=== PATIENT | female | born 2000 | race Two or more races ===

== ENCOUNTER 2024-06-30 20:04 | Emergency (ER) | payer SELFPAY ==
[~2024-06-30] VITALS: Ht 170.2 cm; Wt 59.0 kg
[~2024-06-30 20:04] MED LIST: CITRATE OF MEGNESIA PO; MIRALAX17 GM PO
[2024-06-30] MEDS ORDERED: ONDANSETRON HCl 4 MG/2 ML SDV IV ONE (21:00)
[2024-06-30] MEDS ORDERED: SODIUM CHLORIDE 0.9% 1,000 ML IV STA (21:00)
[2024-06-30 21:32] LABS: BASO% 0.6 % (0-3); HEMATOCRIT 40.8 % (37.0-47.0); HEMOGLOBIN 13.1 g/dl (12.0-16.0); IMMATURE GRANULOCYTES 0.1 % (0.0-5.0); LYMPH% 40.3 % (15-41); MEAN CELL VOLUME 81.8 fL CALC (80.0-100.0); MEAN CORPUSCULAR HGB 26.3 pG CALC (26.0-32.0); MEAN CORPUSCULAR HGB CONC 32.1 g/dL CAL (32.0-36.0); MONO% 9.5 % (2-13); NEUT# 3.99 thou/uL (2.00-7.15); NEUT% 46.5 % (42-76); RED BLOOD COUNT 4.99 mill/uL (4.20-5.60); RED CELL DISTRI WIDTH 13.3 % (11.5-15.5)
[2024-06-30 21:44] LABS: CREATININE 0.7 mg/dL (0.5-1.0); POTASSIUM 4.1 mmol/l (3.5-5.1); TOTAL PROTEIN 8.4 g/dL (6.3-8.2)
[2024-06-30 21:45] LABS: ALBUMIN 4.9 g/dL (3.2-5.0); BILIRUBIN, TOTAL 0.6 mg/dL (0.02-1.3)
[2024-06-30] MEDS ORDERED: LACTATED RINGER'S 1,000 ML IV ONE (22:20)
[2024-06-30 22:44] LABS: URINE BILIRUBIN - DIPSTICK Negative (NEGATIVE); URINE BLOOD DIPSTICK Trace-intact (NEGATIVE); URINE GLUCOSE - DIPSTICK Negative (NEGATIVE); URINE KETONE 15 mg/dL (NEGATIVE); URINE NITRITE - DIPSTICK Negative (Negative); URINE PROTEIN - DIPSTICK Trace mg/dL (NEG-TRACE); URINE SPECIFIC GRAVITY 1.025
[2024-06-30 22:50] LABS: URINE COLOR Yellow; URINE LEUK ESTERASE Small (NEGATIVE)
[2024-06-30 22:55] LABS: URINE SQUAMOUS EPITHELIAL CELL MODERATE EPI/hpf (0-FEW)
[2024-06-30] MEDS ORDERED: OB COMPLET2 PO (22:58)
[2024-06-30] MEDS ORDERED: ONDANSETRON4 MG PO (22:58)
[2024-06-30 23:23] VITALS: BP 125/74
== END 2024-06-30 23:23 | disposition home or self-care (01) | DRG 833 ==
LOC: ED 20:04
PROVIDERS: Family Medicine
DX: O21.9 Vomiting of pregnancy, unspecified (principal); Z3A.00 Weeks of gestation of pregnancy not specified